=== PATIENT | male | born 1960 | race African-American/Black ===

== ENCOUNTER 2017-06-29 23:26 | Emergency (ER) | payer MEDICAID ==
[~2017-06-29] VITALS: Ht 182.9 cm; Wt 104.0 kg
[2017-06-30] MEDS ORDERED: ASPIRIN 81MG TABLET PO ONE (02:00)
[2017-06-30 02:21] LABS: BASOPHILS % 0.6 % (0.0-2.0); EOSINOPHILS % 0.5 % (0.0-5.0); HEMATOCRIT. 49.6 % (42.0-52.0); HEMOGLOBIN. 17.2 g/dL (14.0-18.0); LYMPHOCYTES % 15.6 % (20.0-50.0); MEAN CORPUSCULAR HEMOGLOBIN 37.5 pg (28.0-32.0); MEAN CORPUSCULAR VOLUME 108.1 fL (80.0-94.0); MEAN PLATELET VOLUME 8.1 fl (7.4-10.4); MONOCYTES % 6.6 % (2.0-8.0); NEUTROPHILS % 76.7 % (40.0-76.0); PLATELET 201 x1000/uL (130-400); RED BLOOD CELL COUNT 4.59 mill/uL (4.7-6.1); RED CELL DISTRIBUTION WIDTH 15.7 % (11.6-14.6)
[2017-06-30 02:24] LABS: INR 1.1; PROTHROMBIN TIME 11.2 sec (9.4-11.6)
[2017-06-30 02:26] LABS: CHLORIDE 100 mEq/L (98-107)
[2017-06-30 02:32] LABS: TROPONIN I <0.01 ng/mL ng/mL (0.00-0.04)
[2017-06-30 02:41] LABS: CREATINE KINASE 1559 IU/L (39-308)
[2017-06-30] MEDS ORDERED: SODIUM CHLORIDE 0.9% 1,000 ML IV NR (03:00)
[2017-06-30] MEDS ORDERED: LORAZEPAM 2MG/ML CPJ IV NR (03:00)
[2017-06-30 03:55] LABS: *BENZODIAZEPINES SCREEN URINE NEGATIVE (NEGATIVE); *COCAINE SCREEN URINE NEGATIVE (NEGATIVE); CANNABINOID URINE SCREEN PRESUMTIVE POSITIVE (NEGATIVE); METHADONE URINE SCREEN NEGATIVE (NEGATIVE); OPIATES URINE SCREEN NEGATIVE (NEGATIVE); PHENCYCLIDINE URINE SCREEN NEGATIVE (NEGATIVE)
[2017-06-30 03:56] LABS: *AMPHETAMINES SCREEN URINE PRESUMTIVE POSITIVE (NEGATIVE); *BARBITURATES SCREEN URINE NEGATIVE (NEGATIVE)
[2017-06-30] MEDS: SODIUM CHLORIDE 0.9% 1,000 ML IV NR ×2 (05:00→11:03)
[2017-06-30 10:05] VITALS: BP 201/102
== END 2017-06-30 11:05 | disposition left against medical advice (07) ==
LOC: ER 23:26 → EDBEDREQ 06-30 03:07 → ER 06-30 11:05 → CANBEDREQ 06-30 14:10
DX: M62.82 Rhabdomyolysis (principal); R07.9 Chest pain, unspecified; I10 Essential (primary) hypertension; M19.90 Unspecified osteoarthritis, unspecified site; F17.210 Nicotine dependence, cigarettes, uncomplicated; F12.10 Cannabis abuse, uncomplicated; Z79.899 Other long term (current) drug therapy
CPT/HCPCS: 36415; 71045; 80053; 80305; 82550; 82962; 83605; 83880; 84484; 85025; 85610; 93005; 96361; 96374; 99285; J2060; J7030; Z7610

== ENCOUNTER 2018-03-08 09:20 | Emergency (ER) | payer MEDICAID ==
[~2018-03-08] VITALS: Ht 182.9 cm; Wt 102.0 kg
[2018-03-08] MEDS ORDERED: FOLIC ACID 1 MG, THIAMINE HCL 100 MG, MVI, ADULT NO.1 10 ML in DEXTROSE 5% WATER 1,000 ML IV ONE ×4 (10:15)
[2018-03-08 10:50] LABS: BASOPHILS % 0.9 % (0.0-2.0); EOSINOPHILS % 0.9 % (0.0-5.0); HEMATOCRIT. 42.5 % (42.0-52.0); HEMOGLOBIN. 14.7 g/dL (14.0-18.0); LYMPHOCYTES % 32.3 % (20.0-50.0); MEAN CORPUSCULAR VOLUME 103.8 fL (80.0-94.0); MEAN PLATELET VOLUME 8.2 fl (7.4-10.4); MONOCYTES % 9.8 % (2.0-8.0); NEUTROPHILS % 56.1 % (40.0-76.0); PLATELET 165 x1000/uL (130-400); RED BLOOD CELL COUNT 4.09 mill/uL (4.7-6.1); RED CELL DISTRIBUTION WIDTH 14.8 % (11.6-14.6)
[2018-03-08 10:53] LABS: CHLORIDE 102 mEq/L (98-107)
[2018-03-08 11:04] LABS: CREATINE KINASE 224 IU/L (39-308); ETHANOL BLOOD 68 mg/dL
[2018-03-08 11:06] LABS: CREATINE KINASE MB FRACTION 3.6 ng/mL (0.5-3.6)
[2018-03-08 11:15] LABS: PARTIAL THROMBOPLASTIN TIME 25.9 sec (23.4-31.0); PROTHROMBIN TIME 9.7 sec (9.1-11.1)
[2018-03-08 11:15] LABS: *AMPHETAMINES SCREEN URINE NEGATIVE (NEGATIVE); *BARBITURATES SCREEN URINE NEGATIVE (NEGATIVE); *BENZODIAZEPINES SCREEN URINE NEGATIVE (NEGATIVE); *COCAINE SCREEN URINE NEGATIVE (NEGATIVE); CANNABINOID URINE SCREEN PRESUMTIVE POSITIVE (NEGATIVE); CLARITY URINE CLEAR (CLEAR); COLOR URINE YELLOW (YELLOW); KETONES URINE NEGATIVE (NEGATIVE); LEUKOCYTE ESTERASE URINE NEGATIVE (NEGATIVE); METHADONE URINE SCREEN NEGATIVE (NEGATIVE); NITRITE URINE NEGATIVE (NEGATIVE); OCCULT BLOOD URINE NEGATIVE (NEGATIVE); OPIATES URINE SCREEN NEGATIVE (NEGATIVE); PH URINE 5.5 (4.5-8.0); PHENCYCLIDINE URINE SCREEN NEGATIVE (NEGATIVE); PROTEIN URINE NEGATIVE (NEGATIVE); SPECIFIC GRAVITY URINE 1.023 (1.005-1.030)
[2018-03-08 14:05] VITALS: BP 133/97
== END 2018-03-08 14:19 | disposition home or self-care (01) ==
LOC: ER 09:20
DX: E11.65 Type 2 diabetes mellitus with hyperglycemia (principal); F10.10 Alcohol abuse, uncomplicated; Y90.3 Blood alcohol level of 60-79 mg/100 ml; M79.10 Myalgia, unspecified site; I10 Essential (primary) hypertension; Z79.4 Long term (current) use of insulin; J44.9 Chronic obstructive pulmonary disease, unspecified
CPT/HCPCS: 36415; 71045; 80053; 80305; 81003; 82550; 82553; 83690; 83735; 83880; 84484; 85025; 85610; 85730; 93005; 96365; 96366; 99285; G0482; J3411; J3490; J7070

== ENCOUNTER 2021-10-20 11:57 | Emergency (ER) | payer MEDICAID ==
[~2021-10-20] VITALS: Ht 177.8 cm; Wt 91.0 kg
[2021-10-20] MEDS ORDERED: KETOROLAC 30MG/ML VIAL IM ONE (16:15)
[2021-10-20] MEDS ORDERED: CYCLOBENZAPRINE 10MG TABLET PO ONE (16:15)
[2021-10-20] MEDS ORDERED: NAPR-1176 MT (17:40)
[2021-10-20] MEDS ORDERED: CYCL10TA21 MT (17:40)
[2021-10-20 18:04] VITALS: BP 142/67
== END 2021-10-20 18:06 | disposition home or self-care (01) ==
LOC: ER 13:11
DX: M48.02 Spinal stenosis, cervical region (principal); J44.1 Chronic obstructive pulmonary disease with (acute) exacerbation; E11.9 Type 2 diabetes mellitus without complications; I10 Essential (primary) hypertension; J45.909 Unspecified asthma, uncomplicated
CPT/HCPCS: 72125; 72131; 82962; 96372; 99284; J1885